=== PATIENT | male | born 1970 | race Caucasian/White ===

== ENCOUNTER 2023-02-22 12:21 | Emergency (ER) | payer OTHER, SELFPAY ==
[2023-02-22 13:02] VITALS: BP 193/98; PULSE 84; RESP 18; TEMP 36.2; O2SAT 99; BMI 25.8
--- NOTE | 2023-02-22 13:11 | DI.RAD.S_ITS ---
PROCEDURE: XR FOOT LT MIN 3V INDICATIONS: heavy object fell on foot TECHNIQUE: 3 views of the foot were acquired. COMPARISON: None. FINDINGS: Bones: Meeting was placed fracture through the 1st, 2nd and 3rd metatarsal midshaft. Soft tissues: No tibiotalar joint effusion. Achilles tendon appears normal. Soft tissue swelling. IMPRESSION: 1st, 2nd and 3rd metatarsal fractures. Dictated by: Jannet Patel MD, PhD on 02/22/2023 at 13:28 Approved by: Jannet Patel MD, PhD on 02/22/2023 at 13:29
[2023-02-22 15:46] VITALS: BP 207/102; PULSE 86; RESP 18; O2SAT 98
--- NOTE | 2023-02-22 16:04 | ED.LOWEXIN ---
HPI - Extremity Injury (Lower) <June Lynn PA-C - Last Filed: 02/22/23 16:28> General Chief Complaint: Extremity Injury, Lower Stated Complaint: lt foot injury (bleeding) Time Seen by Provider: 02/22/23 15:53 Source: patient Mode of arrival: Wheelchair History of Present Illness HPI Narrative: 52-year-old male with no reported past medical history presents to the ED status post a left foot injury sustained just prior to arrival. Patient states that he dropped a heavy piece of a stage on his left foot. Last tetanus is unknown. Patient complains of pain and swelling in the left foot. Denies numbness, tingling, weakness. Bleeding is controlled with pressure. Related Data Previous Rx's Medication Instructions Recorded cephalexin 500 mg capsule 500 mg PO TID 7 days #21 caps 02/22/23 Allergies Allergy/AdvReac Type Severity Reaction Status Date / Time No Known Drug Allergies Allergy Verified 02/22/23 13:02 Review of Systems <June Lynn PA-C - Last Filed: 02/22/23 16:28> Review of Systems ROS Unobtainable: All systems reviewed & are unremarkable except as noted in HPI and below Constitutional Constitutional: Denies chills, Denies fatigue, Denies fever(s), Denies frequent falls, Denies lethargy and Denies weakness Eyes Eyes: Denies change in vision, Denies eye discharge, Denies irritation and Denies loss of vision ENT Ears, Nose, Mouth, and Throat: Denies change in voice, Denies dizziness, Denies neck pain, Denies sore throat and Denies throat swelling Cardiovascular Cardiovascular: Denies chest pain, Denies irregular heart rhythm, Denies lightheadedness, Denies palpitations, Denies dyspnea, Denies dyspnea on exertion and Denies orthopnea Respiratory Respiratory: Denies cough, Denies dyspnea, Denies dyspnea on exertion and Denies wheezing Gastrointestinal Gastrointestinal: Denies abdominal pain, Denies change in bowel habits, Denies diarrhea, Denies nausea and Denies vomiting Genitourinary Genitourinary: Denies hematuria, Denies flank pain, Denies urinary incontinence and Denies urinary urgency Musculoskeletal Musculoskeletal: Denies back pain, Denies muscle weakness, Denies neck pain, Denies numbness and Denies tingling Comments: Left foot injury and pain Integumentary/Breasts Skin/Breast: Denies pruritus, Denies erythema, Denies rash and Denies wounds Neurologic Neurologic: Denies behavioral changes, Denies confusion, Denies dizziness, Denies frequent falls, Denies loss of vision, Denies numbness, Denies tingling and Denies weakness Psychiatric Psychiatric: Denies anxiety, Denies behavioral changes, Denies confusion, Denies depression, Denies homicidal ideation and Denies suicidal ideation Endocrine Endocrine: Denies fatigue, Denies flushing and Denies palpitations Hematologic/Lymphatic Hematologic/Lymphatic: Denies easy bruising Allergic/Immunologic Allergic/Immunologic: Denies urticaria, Denies throat swelling and Denies wheezing Patient History <June Lynn PA-C - Last Filed: 02/22/23 16:28> Social History Smoking Status: Never smoker Smoking Status: Never smoker alcohol intake frequency: 0-2 drinks per day Substance Use Type: does not use Exam <June Lynn PA-C - Last Filed: 02/22/23 16:28> Narrative Exam Narrative: Const General:?cooperative, healthy appearing and comfortable [facility] Head:?normal to inspection Ears:?hearing grossly normal bilaterally Nose:?external nose normal Face and sinus:?normal facial exam and sinuses nontender Mouth:?oral mucosae normal Throat:?posterior oropharynx normal Eyes General:?appearance normal, both eyes and all related structures Neck Neck:?normal visual inspection and no lymphadenopathy noted Resp Effort & Inspection:?normal respiratory effort Auscultation:?clear to auscultation bilaterally Cardio Rate:?regular rate Rhythm:?regular rhythm Musculoskeletal Tenderness to palpation, swelling of left midfoot. Strength and sensation is intact. There is full range of motion. Cap refill less than 2 seconds. Patient is neurovascularly intact. There is an abrasion overlying the 1st metatarsal, bleeding is controlled with pressure. Neuro General:?patient alert, patient awake and patient oriented x3 Initial Vital Signs Initial Vital Signs: Vital Signs Temperature 97.2 F L 02/22/23 13:02 Pulse Rate 84 02/22/23 13:02 Respiratory Rate 18 02/22/23 13:02 Blood Pressure 193/98 H 02/22/23 13:02 Pulse Oximetry 99 02/22/23 13:02 Oxygen Delivery Method Room Air 02/22/23 13:02 <Adolfo Yates MD - Last Filed: 02/23/23 07:18> Initial Vital Signs Initial Vital Signs: Vital Signs Temperature 97.2 F L 02/22/23 13:02 Pulse Rate 84 02/22/23 13:02 Respiratory Rate 18 02/22/23 13:02 Blood Pressure 193/98 H 02/22/23 13:02 Pulse Oximetry 99 02/22/23 13:02 Oxygen Delivery Method Room Air 02/22/23 13:02 Course <June Lynn PA-C - Last Filed: 02/22/23 16:28> Orders Ordered: Discontinued Medications Bacitracin (Bacitracin Oint 0.9 Gm Pckt) 1 applic TOP NOW ONE Stop: 02/22/23 16:17 Last Admin: 02/22/23 16:26 Dose: 1 applic Documented By: LIV Ceftriaxone Sodium (Ceftriaxone 2,000 Mg Vial) 1,000 mg IM NOW ONE Stop: 02/22/23 16:11 Last Admin: 02/22/23 16:30 Dose: 1,000 mg Documented By: LIV Diphtheria/Tetanus/Acell Pertussis (Tet,Diph,Pertuss(Acell),Vac/Pf 0.5 Ml Syringe) 0.5 ml IM .ONCE ONE Stop: 02/22/23 16:01 Last Admin: 02/22/23 16:09 Dose: 0.5 ml Documented By: LIV Ibuprofen (Ibuprofen 400 Mg Tablet) 800 mg PO NOW ONE Stop: 02/22/23 15:56 Last Admin: 02/22/23 16:08 Dose: 800 mg Documented By: LIV Lidocaine HCl (Lidocaine 1% (Pf) 5 Ml) 4.2 ml INJ NOW ONE Stop: 02/22/23 16:11 Last Admin: 02/22/23 16:36 Dose: Not Given Documented By: LIV Vital Signs Vital signs: Vital Signs - 8 hr 02/22/23 13:02 02/22/23 15:46 Temperature 97.2 F L Pulse Rate 84 86 Respiratory Rate 18 18 Blood Pressure 193/98 H 207/102 H Pulse Oximetry 99 98 Oxygen Delivery Method Room Air Room Air <Adolfo Yates MD - Last Filed: 02/23/23 07:18> Orders Ordered: Discontinued Medications Bacitracin (Bacitracin Oint 0.9 Gm Pckt) 1 applic TOP NOW ONE Stop: 02/22/23 16:17 Last Admin: 02/22/23 16:26 Dose: 1 applic Documented By: LIV Ceftriaxone Sodium (Ceftriaxone 2,000 Mg Vial) 1,000 mg IM NOW ONE Stop: 02/22/23 16:11 Last Admin: 02/22/23 16:30 Dose: 1,000 mg Documented By: LIV Diphtheria/Tetanus/Acell Pertussis (Tet,Diph,Pertuss(Acell),Vac/Pf 0.5 Ml Syringe) 0.5 ml IM .ONCE ONE Stop: 02/22/23 16:01 Last Admin: 02/22/23 16:09 Dose: 0.5 ml Documented By: LIV Ibuprofen (Ibuprofen 400 Mg Tablet) 800 mg PO NOW ONE Stop: 02/22/23 15:56 Last Admin: 02/22/23 16:08 Dose: 800 mg Documented By: LIV Lidocaine HCl (Lidocaine 1% (Pf) 5 Ml) 4.2 ml INJ NOW ONE Stop: 02/22/23 16:11 Last Admin: 02/22/23 16:36 Dose: Not Given Documented By: LIV Vital Signs Vital signs: Vital Signs - 8 hr 02/22/23 13:02 02/22/23 15:46 Temperature 97.2 F L Pulse Rate 84 86 Respiratory Rate 18 18 Blood Pressure 193/98 H 207/102 H Pulse Oximetry 99 98 Oxygen Delivery Method Room Air Room Air MDM - Extremity Injury (Lower) <June Lynn PA-C - Last Filed: 02/22/23 16:28> MDM Narrative Medical decision making narrative: 52-year-old male with no reported past medical history presents to the ED status post a left foot injury sustained just prior to arrival. Concern for fracture/dislocation versus abrasion versus musculoskeletal sprain/strain versus other. Will update tetanus. Will give ibuprofen for pain. Will reassess. X-ray shows fracture through the 1st 2nd and 3rd metatarsal mid shaft left foot. Will consult ortho. Dr. Conrad from ortho consulted. He recommends a dose of antibiotics in the ED, followed by a week of Keflex. Patient to be fitted with a walking boot, follow-up with ortho in clinic. Discussed findings with patient. Patient was given a dose of Rocephin in the ED. prescribed Keflex for a week. Tetanus was updated. Wound was dressed. ED return precautions discussed with patient. Patient verbalized understanding. Medical records reviewed: Yes Discharge Plan Departure Patient Disposition: Home Clinical Impression: Metatarsal fracture Instructions: DI for Foot Fracture Activity Restrictions/Additional Instructions: You were evaluated in the ED today for a left foot injury sustained today. You have fractures in your 1st 2nd and 3rd metatarsals of the left foot. You were given a dose of antibiotics in the ED and you are being sent home with a prescription for antibiotics for a week. Please take the antibiotics as prescribed. You were also given a tetanus shot today which is good for the next 10 years. We consulted ortho special Dr. Conrad who recommends that you be fitted with a walking boot and not bear weight until you see him. You may call [facility] at [phone] to schedule an appointment. Prescriptions: New cephalexin 500 mg capsule 500 mg PO TID 7 Days Qty: 21 0RF Stand Alone Forms: Patient Portal/API <Adolfo Yates MD - Last Filed: 02/23/23 07:18> Cosign ED Attending Cosignature Attestation: I was immediately available in the department for consultation. ?This documentation has been reviewed and I agree with assessment and plan. Supervised by Adolfo Yates MD
[2023-02-22] MEDS: IBUPROFEN 400 MG TABLET 800 MG PO (16:08)
[2023-02-22] MEDS: TET,DIPH,PERTUSS(ACELL),VAC/PF 0.5 ML SYRINGE IM (16:09)
[2023-02-22] MEDS: BACITRACIN OINT 0.9 GM PCKT 1 APPLIC TOP (16:26)
[2023-02-22] MEDS: cefTRIAXone 2,000 MG VIAL 1000 MG IM (16:30)
== END 2023-02-22 17:17 | disposition home or self-care (01) ==
PROVIDERS: Emergency Provider Student in an Organized Health Care Education/Training Program
DX: S92.312A Displaced fracture of first metatarsal bone, left foot, initial encounter for closed fracture (principal); S92.322A Displaced fracture of second metatarsal bone, left foot, initial encounter for closed fracture; S92.332A Displaced fracture of third metatarsal bone, left foot, initial encounter for closed fracture; W22.8XXA Striking against or struck by other objects, initial encounter; Y99.0 Civilian activity done for income or pay; Z23 Encounter for immunization
CPT/HCPCS: 73630; 90471; 96372; 99283; 90715; J0696